=== PATIENT | female | born 1970 | race Caucasian/White ===

== ENCOUNTER → 2017-10-17 15:03 | Outpatient (CLI) | payer MEDICARE, MEDICAID, SELFPAY ==
--- NOTE | 2017-10-17 15:20 | MM_ITS ---
MM Dig mamm DX unilat LT CAD, US breast LT complete COMPARISON: 04/03/2017 INDICATION: Follow-up abnormal mammogram and ultrasound ORDERING PHYSICIAN: Cora Medina PATIENT AGE: 47 years TECHNIQUE: Standard images were performed along with problem-solving views and left breast ultrasound FINDINGS: There is average to dense fibroglandular tissue. Benign-appearing retroareolar nodule at 8 mm. A 9 nodular density is present at 3:00 and 8 mm nodule at 1-2 o'clock. No malignant appearing mass or malignant appearing microcalcification is evident. Left breast ultrasound: There are multiple left breast cysts noted including a 5 mm cyst at 2:00, a 7 x 6 mm cyst at 3:00, 4 mm cyst at 10:00 near the nipple and at 9 mm cyst at 3 cough lateral. These appear to correspond to the benign-appearing mammographic abnormalities. No malignant appearing masses IMPRESSION: Multiple benign-appearing breast cysts. No convincing evidence of malignancy BI-RADS Category: 2 Benign Finding(s) RECOMMENDED FOLLOW-UP: 6M - 6 MONTH FOLLOW-UP Recommend bilateral screening mammogram March 2018 (A letter has been sent to the patient regarding results of the study.)
== END ==
PROVIDERS: PCP Nurse Practitioner Family; Visit Provider Nurse Practitioner Family
DX: R92.8 Other abnormal and inconclusive findings on diagnostic imaging of breast (principal)
CPT/HCPCS: 76641; 77065